=== PATIENT | male | born 1950 | race Caucasian/White ===

== ENCOUNTER 2019-06-26 10:15 | Emergency (ER) | payer OTHER ==
[2019-06-26 10:26] VITALS: BP 159/67; PULSE 72; BMI 27.4
--- NOTE | 2019-06-26 11:21 | PDOC ---
History of Present Illness - General Chief Complaint: Pain Stated Complaint: PAIN Time Seen by Provider: 06/26/19 11:03 History Source: Patient Exam Limitations: No Limitations - History of Present Illness Initial Comments: 06/26/19 11:19 Patient states has pain to his right shoulder over the past 48 hours. 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 Occurred: reports: yesterday Severity: reports: moderate Pain Location: reports: upper extremity (Right shoulder) Method of Injury: Yes: unknown Modifying Factors: improves with: None Past History - Travel Traveled outside of the country in the last 30 days: No Close contact w/someone who was outside of country & ill: No - Past Medical History Allergies/Adverse Reactions: Allergies Allergy/AdvReac Type Severity Reaction Status Date / Time No Known Allergies Allergy Verified 06/26/19 10:26 Home Medications: Ambulatory Orders Aspirin [ASA -] 81 mg PO DAILY 11/16/14 Atorvastatin Ca [Lipitor -] 10 mg PO HS 11/16/14 Canagliflozin [Invokana] 100 mg PO 11/16/14 Cromolyn Sodium [Crolom] 1 drop OD 11/16/14 Diclofenac Sodium [Voltaren] 2.5 ml NR 11/16/14 Fluticasone Propionate [Flovent Diskus] 50 mcg IH 11/16/14 Liraglutide [Victoza -] 0.6 mg SQ DAILY@0700 11/16/14 Loratadine 10 mg PO 11/16/14 Omeprazole [Prilosec (RX)] 40 mg PO DAILY 11/16/14 Saxagliptin HCl/Metformin HCl [Kombiglyze Xr 5-1,000 mg Tab] 1 tab PO DAILY 06/23 Naproxen [Naprosyn -] 500 mg PO BID #30 tablet 06/26/19 Cardiac Disorders: Yes ([facility]) COPD: No HTN: Yes Hypercholesterolemia: Yes - Surgical History Cardiac Surgery: Yes ([facility], BLOOD CLOT REMOVED BETWEEN HEART AND LUNG) Lung Surgery: Yes - Psycho Social/Smoking Cessation Hx Smoking History: Never smoked Hx Alcohol Use: Yes Drug/Substance Use Hx: No Substance Use Type: Alcohol Trauma Specific PMHX - Complaint Specific PMHX Back Injury: No Review of Systems - Review of Systems Able to Perform ROS?: Yes Is the patient limited Green[place]ic proficient: Yes Constitutional: Yes: Symptoms Reported, See HPI, Malaise. No: Chills, Fever HEENTM: No: Symptoms Reported Respiratory: Yes: See HPI. No: Symptoms reported Musculoskeletal: Yes: Symptoms Reported, See HPI, Joint Pain (Patient with complaints of right shoulder pain) *Physical Exam - Vital Signs Last Vital Signs Temp Pulse Resp BP Pulse Ox 72 16 159/67 98 06/26/19 10:22 06/26/19 10:22 06/26/19 10:22 06/26/19 10:22 - Physical Exam General Appearance: Yes: Nourished, Appropriately Dressed, Apparent Distress, Mild Distress HEENT: positive: CINDY, Normal ENT Inspection, TMs Normal, Pharynx Normal Neck: positive: Supple. negative: Tender Gastrointestinal/Abdominal: positive: Soft. negative: Tender Musculoskeletal: positive: Normal Inspection, Decreased Range of Motion ( Patient with pain to shoulder capsule. Able to abduct and forward flex only to 90 degrees, with tenderness past that, range of motion passive is to 120 degrees. Has strong grasp, flexion and extension of all digits, and neurovascular intact hand). negative: Vertebral Tenderness Extremity: positive: Normal Inspection. negative: Normal Range of Motion, Swelling Integumentary: positive: Normal Color, Dry, Warm Neurologic: positive: financial services counselor II-XII NML intact, Fully Oriented, Alert, Normal Mood/ Affect, Normal Response, Motor Strength 5/5 ED Progress Note - Progress Note Progress Note: 06/26/19 11:49 X-ray negative for fractures or dislocation, will treat for shoulder strain with NSAIDs and have follow-up with orthopedist for further evaluation Discharge - Discharge Information Problems reviewed: Yes Clinical Impression/Diagnosis: Shoulder strain Qualifiers: Encounter type: initial encounter Laterality: right Qualified Code(s): S46.911A - Strain of unspecified muscle, fascia and tendon at shoulder and upper arm level, right arm, initial encounter Condition: Stable Disposition: HOME - Admission No - Additional Discharge Information Prescriptions: Naproxen [Naprosyn -] 500 mg PO BID #30 tablet - Follow up/Referral - Patient Discharge Instructions Patient Printed Discharge Instructions: DI for Shoulder Sprain Additional Instructions: Rest, ice to area on and off for 15 minutes 4-6 times a day Avoid heavy lifting or exercise until pain and swelling is resolved or until further directed Keep area highly elevated to reduce swelling Use splints/Manjeet wrap as directed Followup with orthopedist in one to 2 days if not improving, if significantly improved may wait one week for followup with orthopedist May use Naprosyn 500 mg tablet every 12 hours as needed for pain - Post Discharge Activity Work/Back to School Note: Back to Work
[2019-06-26] MEDS ORDERED: IBUPROFEN 600 MG TABLET (FP) PO ONE ×2 (11:22→11:23)
== END 2019-06-26 11:47 | disposition home or self-care (01) ==
LOC: JER 10:15
DX: S46.911A Strain of unspecified muscle, fascia and tendon at shoulder and upper arm level, right arm, initial encounter (principal); Z79.82 Long term (current) use of aspirin; I51.9 Heart disease, unspecified; E78.00 Pure hypercholesterolemia, unspecified
CPT/HCPCS: 73030-TC-RT-FY; 99281-25

== ENCOUNTER 2024-06-15 12:58 | Emergency (ER) | payer OTHER ==
[2024-06-15 13:14] VITALS: RESP 17; TEMP 99.2; BMI 28.0
[2024-06-15] MEDS ORDERED: CYCLOBENZAPRINE HCL 10 MG TABLET (FP) ONE (14:00)
[2024-06-15] MEDS ORDERED: LIDOCAINE 5% TOPICAL PATCH ONE (14:01)
[2024-06-15] MEDS ORDERED: ACETAMINOPHEN 325 MG TABLET (FP) ONE (14:01)
[2024-06-15] MEDS: CYCLOBENZAPRINE HCL 10 MG TABLET (FP) PO ONE (14:05)
[2024-06-15] MEDS: LIDOCAINE 5% TOPICAL PATCH TP ONE (14:05)
[2024-06-15] MEDS: ACETAMINOPHEN 500 MG TABLET (FP) PO ONE (14:05)
[2024-06-15 16:52] LABS: BASO % 0.6 % (0-2.0); EOS % 2.6 % (0-4.5); HEMATOCRIT 46.4 % (35.4-49); HEMOGLOBIN 15.6 GM/dL (11.7-16.9); LYMPH % 33.6 % (8-40); MCH 30.2 pg (25.7-33.7); MCHC 33.6 g/dl (32.0-35.9); MEAN CELL VOLUME 89.8 fl (80-96); MONO % 13.5 % (3.8-10.2); NEUT % 49.7 % (42.8-82.8); PH,URINE 7.5 (5.0-8.0); PLATELET COUNT 176 10^3/uL (134-434); RBC 5.17 M/mm3 (4.00-5.60); RDW 14.2 % (11.9-15.9); URINE APPEARANCE CLEAR; URINE BILIRUBIN NEGATIVE (NEGATIVE); URINE COLOR YELLOW; URINE GLUCOSE (UA) NEGATIVE (NEGATIVE); URINE KETONE TRACE (NEGATIVE); URINE LEUK ESTERASE NEGATIVE (NEGATIVE); URINE NITRITE NEGATIVE (NEGATIVE); URINE PROTEIN NEGATIVE (NEGATIVE); WHITE BLOOD COUNT 4.4 K/mm3 (4.0-10.0)
[2024-06-15 17:29] LABS: ALBUMIN 3.9 g/dl (3.4-5.0); BILIRUBIN,TOTAL 1.1 mg/dL (0.2-1); BLOOD UREA NITROGEN 15.6 mg/dL (7-18); CALCIUM 9.7 mg/dL (8.5-10.1); TOT PROT 7.7 g/dl (6.4-8.2)
[2024-06-15 19:46] VITALS: BP 154/68; PULSE 66
[2024-06-15] MEDS ORDERED: LIDOCAINE PATCH REMOVAL MC ONE (22:00)
== END 2024-06-15 19:44 | disposition home or self-care (01) ==
LOC: JER 12:58
DX: M54.50 Low back pain, unspecified (principal); M25.552 Pain in left hip
CPT/HCPCS: 36415; 72170-TC-FY; 73502-TC-LT-FY; 74176-TC; 80053; 81003; 85025; 87086; 93005; 93010; 99285-25